=== PATIENT | female | born 1985 | race Caucasian/White ===

== ENCOUNTER 2016-10-10 11:00 | Observation (INO) | payer OTHER ==
[~2016-10-10] VITALS: Ht 175.3 cm; Wt 67.8 kg
[2016-10-10] MEDS ORDERED: HYDROmorphone 1 MG/ML (DILAUDID) SYRINGE IV ONE ×5 (11:40→16:50)
[2016-10-10] MEDS ORDERED: ONDANSETRON 2 MG/ML (Z0FRAN) 2 ML VIAL IV ONE ×2 (11:40→13:15)
[2016-10-10] MEDS: SODIUM CHLORIDE FLUSH 3 ML SYR IV PRN ×2 (11:46→19:30)
[2016-10-10 12:02] LABS: BASOPHILS % (AUTO) 0 % (0-2); EOSINOPHILS # (AUTO) 0.2 10^3uL; EOSINOPHILS % (AUTO) 2 % (0-4); LYMPHOCYTES # (AUTO) 2.3 X10^3; MEAN CORPUSCULAR HGB CONC 34.5 g/dL (31.0-37.0); MEAN CORPUSCULAR VOLUME 94 FL (80-100); MEAN PLATELET VOLUME 10.2 FL (6.0-9.5); MONOCYTES # (AUTO) 0.7 X10^3; MONOCYTES % (AUTO) 7 % (3-11); NEUTROPHILS # (AUTO) 6.3 X10^3; NEUTROPHILS % (AUTO) 66 % (51-67); PLATELET COUNT 236 10^3uL (150-450); WHITE BLOOD COUNT 9.48 10^3uL (4.0-11.0)
[2016-10-10 12:03] LABS: BILIRUBIN,URINE Negative (Negative); COLOR,URINE Yellow; GLUCOSE, URINE (UA) Negative (Negative); LEUKOCYTE ESTERASE ,URINE 1+ (Negative); UROBILINOGEN,URINE 0.2 mg/dL (0.2-1.0)
[2016-10-10 12:07] LABS: MEAN CORPUSCULAR HEMOGLOBIN 32.5 PG (26.0-34.0)
[2016-10-10 12:07] LABS: CLARITY,URINE Slightly Cloudy
[2016-10-10 12:09] LABS: URINE CENTRIFUGED VOLUME 12 mL
[2016-10-10 12:11] LABS: ALBUMIN 4.9 g/dL (3.4-5.0); CALCULATED IONIZED CALCIUM 3.7 mg/dL (3.8-4.6); TOTAL PROTEIN 8.4 g/dL (6.4-8.5)
[2016-10-10 12:24] LABS: HCG,QUALITATIVE URINE Negative
--- NOTE | 2016-10-10 14:22 | NUR ---
radiology states will be an hour before a gall bladder sono can be done
--- NOTE | 2016-10-10 14:25 | NUR ---
notified of pt pain 02/23
[2016-10-10] MEDS: SODIUM CHLORIDE FLUSH 10 ML SYR IV PRN ×4 (14:35→19:30)
[2016-10-10] MEDS ORDERED: METOCLOPRAMIDE 10 MG/2 ML (REGLAN) VIAL IV ONE (16:10)
--- NOTE | 2016-10-10 18:30 | NUR ---
patient gave her mom her medications to take home
--- NOTE | 2016-10-10 18:36 | NUR ---
Pt admitted to room 320 via w/c from ED accompanied by Inga Barrientos RN/Elvin Sup and parents. Alert/oriented x4. Abd pain rated 6/10. IV SL intact to RAC. See admission database for further assessment.
[2016-10-10 18:43] VITALS: BP 124/83
[2016-10-10] MEDS ORDERED: ACETAMINOPHEN 325 MG TAB (TYLENOL) PO PRN (19:05)
[2016-10-10] MEDS ORDERED: MAGNESIUM HYDROXIDE 80MG/ML (MILK OF MAGNESIA) 30 ML UDC PO PRN (19:05)
[2016-10-10] MEDS ORDERED: DOCUSATE SODIUM 100 MG (COLACE) CAP PO PRN (19:05)
[2016-10-10] MEDS ORDERED: POLYETHYLENE GLYCOL 17 GM (MIRALAX) PACKET PO PRN (19:05)
[2016-10-10] MEDS ORDERED: CALCIUM CARBONATE CHEWABLE 300 MG (TUMS) TABLET PO PRN (19:05)
[2016-10-10] MEDS ORDERED: MAG HYDROX/AL HYDROX/SIMETH 200-200-20/5 ML (MAG-AL PLUS) 30 ML UDC PO PRN (19:05)
[2016-10-10] MEDS ORDERED: PANTOPRAZOLE 40 MG (PROTONIX) TAB PO SCH (19:05)
[2016-10-10] MEDS: PROMETHAZINE HCL INJ 12.5 MG in SODIUM CHLORIDE 25 ML IV PRN (21:00)
[2016-10-10] MEDS ORDERED: SODIUM CHLORIDE 25 ML IV ONE (21:01)
[2016-10-10] MEDS ORDERED: PROMETHAZINE 25 MG/ML (PHENERGAN) 1 ML VIAL ONE (21:01)
[2016-10-10] MEDS ORDERED: PANTOPRAZOLE IV 40 MG in SODIUM CHLORIDE FLUSH 10 ML IV ONE (22:00)
[2016-10-10] MEDS: PANTOPRAZOLE IV 40 MG in SODIUM CHLORIDE 100 ML IV SCH (22:45)
[2016-10-10] MEDS ORDERED: SODIUM CHLORIDE 100 ML ONE (23:24)
[2016-10-10] MEDS ORDERED: PANTOPRAZOLE 40 MG (PROTONIX) VIAL IV ONE (23:24)
[2016-10-10 23:47] VITALS: BP 118/74
[2016-10-11] MEDS: PANTOPRAZOLE IV 40 MG in SODIUM CHLORIDE 100 ML IV SCH (03:31)
[2016-10-11] MEDS ORDERED: PANTOPRAZOLE 40 MG (PROTONIX) VIAL IV ONE (04:24)
[2016-10-11] MEDS ORDERED: SODIUM CHLORIDE 100 ML ONE (04:25)
--- NOTE | 2016-10-11 05:30 | NUR ---
1914-Pt reports IV is hurting, this RN noted that IV was hard to flush and positional. Restarted 20g IV in RFA with minimal difficulty. Pt reports that she is nauseous and in pain rates 7/10 at this time. 1929-Gave Phenergan 12.5mg IV over 15 min for nausea, and Tramadol 50mg PO for discomfort. 2199-Started Protonix per DR order. 529-Pt has been resting most of shift, currently in bed asleep. Call light in reach, will continue to monitor.
[2016-10-11 06:07] LABS: BASOPHILS % (AUTO) 1 % (0-2); EOSINOPHILS # (AUTO) 0.3 10^3uL; EOSINOPHILS % (AUTO) 5 % (0-4); LYMPHOCYTES # (AUTO) 2.2 X10^3; MEAN CORPUSCULAR HGB CONC 34.5 g/dL (31.0-37.0); MEAN CORPUSCULAR VOLUME 95 FL (80-100); MEAN PLATELET VOLUME 10.1 FL (6.0-9.5); MONOCYTES # (AUTO) 0.4 X10^3; MONOCYTES % (AUTO) 7 % (3-11); NEUTROPHILS # (AUTO) 2.8 X10^3; NEUTROPHILS % (AUTO) 48 % (51-67); PLATELET COUNT 196 10^3uL (150-450); WHITE BLOOD COUNT 5.75 10^3uL (4.0-11.0)
[2016-10-11 06:12] LABS: MEAN CORPUSCULAR HEMOGLOBIN 32.8 PG (26.0-34.0)
[2016-10-11 06:36] LABS: ALBUMIN 3.5 g/dL (3.4-5.0); ANION GAP 10.9 MEQ/L (3-15); PHOSPHORUS 4.2 mg/dL (2.4-4.9)
[2016-10-11 07:41] VITALS: BP 93/59
--- NOTE | 2016-10-11 08:30 | NUR ---
NUTRITION ASSESSMENT Level 1 Patient: Aissatou Stahl Age/Sex: 31/F Date Screened: 10-11-16 Weight: 149.1#/67.8 kg Height: 69 inches Primary Diagnosis: abdominal pain Diet Order: CL Relevant labs: stool occult blood (-), glucose 77 Food allergies: N Nutrition Assessment Criteria Age over 80: N Body Mass Index (BMI) under 19: N Admission Screening Indicates Risk? 3 points Moderate/High Risk Diagnosis: 3 points TPN or PPN: N NPO or clear liquid diet: Yes Serum Glucose <70 or >180: N Hgb A1c >6.7: N/A Total: 6 points Risk Screen: __ Patient at low nutritional risk based on available data; reevaluate in 5-7 days __ Patient at moderate nutritional risk based on available data; reevaluate in 3-5 days _X_ Patient at high nutritional risk; complete Nutrition Assessment within 48 hours of admission.
[2016-10-11] MEDS: ONDANSETRON 2 MG/ML (Z0FRAN) 2 ML VIAL IV PRN (08:57)
[2016-10-11] MEDS: DULoxetine 30 MG (CYMBALTA) CAPSULE PO SCH (09:12)
--- NOTE | 2016-10-11 09:43 | NUR ---
MED REC COMPLETED-current med list obtained from Ext Med History application, retail pharmacy ([facility]) and patient interview. Conducted by Shaina Al, PharmD Candidate 2017
[2016-10-11] MEDS: NICOTINE 21 MG (NICODERM) PATCH TD SCH (09:45)
[2016-10-11] MEDS: HYDROmorphone 1 MG/ML (DILAUDID) SYRINGE IV PRN ×5 (10:32→22:40)
--- NOTE | 2016-10-11 10:35 | NUR ---
Complaining of back pain. Med given.
--- NOTE | 2016-10-11 12:05 | NUR ---
Requesting pain and nausea med. Tylenol refused. Informed too early for other pain meds and nausea med. Cool washcloth offered for nausea but refused. Calm and watching TV. Raman sips of fluids.
--- NOTE | 2016-10-11 12:05 | NUR ---
Requesting solid food. Informed still on clear liquid diet due to scopes tomorrow.
--- NOTE | 2016-10-11 12:49 | NUR ---
Resting in bed talking on phone. No complaints.
--- NOTE | 2016-10-11 13:04 | NUR ---
NUTRITION ASSESSMENT Level II Patient: Aissatou Stahl Age/Sex: 31/F Date Assessed: 10-11-16 ASSESSMENT Pertinent History: Patient admitted with abdominal pain and screened at high nutritional risk secondary to diagnosis with stated 10# weight loss in the last 2 weeks and length of time abdominal pain/n/v began (10-05-16). PMHx includes PUD, IBS, ADHD, insomnia, anxiety/depression and panic disorder. Meds/Nutrition: Protonix, NS, Miralax Weight: 149.1#/67.8 kg Height: 69 inches Body Mass Index (BMI): 22.1 [place] Body Weight : 145#/65.9 kg % IBW: 102% GASTROINTESTINAL Appetite: poor Diet Order: CL (NPO after midnight) Unintentional loss of >10 lbs. in 3 months: Yes (unconfirmed) Difficult to chew/swallow: N Diabetes: N Relevant Labs: stool occult blood (-), glucose 77 Calculations for Nutritional Assessment Estimated calorie needs: 25-28 kcals/kg = 1,675-1,875 kcals Estimated protein needs: 0.8-1.0 g/kg = 53-67 g./day DIAGNOSIS 1. Nutrition Diagnosis: Acute inadequate intake related to acute illness as evidenced by n/v/abdominal pain x6 days. NUTRITIONAL INTERVENTION Goal: Patient will receive adequate nutrition to meet her needs. Plan: Noted plan for upper and lower endoscopy tomorrow. Will follow with physician and surgeon re: etiology of abdominal pain, with specific nutrition interventions to be determined. MONITORING & EVALUATION __ Monitor patients menu selections __ Monitor patients food intake per nursing notes _X_ Monitor NPO/clear liquid days __ Monitor lab values __ Monitor I&O __ Other
--- NOTE | 2016-10-11 13:37 | NUR ---
Reports back and abd pain. Pain med given. States pablo sips water well. Visitor at bedside.
--- NOTE | 2016-10-11 14:51 | NUR ---
States pain is better 5:10. No other complaints.
[2016-10-11 15:37] VITALS: BP 118/73
--- NOTE | 2016-10-11 16:31 | NUR ---
Amb to vending machines with family. Apple juice given to patient.Gait steady. Raman well. Reports back and abd pain. med given.
--- NOTE | 2016-10-11 17:38 | NUR ---
dismissed to home per amb accompanied by Susan PAUL and friend.Gait steady. Alert and oriented x4. Skin w/p/d. Resp regular and unlabored. Continues to have mild tingling right fingertips upon dismissal. Addendum: 10/11/16 at 1927 by Cat Tan RN Note charted on wrong patient.
[2016-10-11] MEDS: SODIUM CHLORIDE FLUSH 3 ML SYR IV PRN (18:29)
[2016-10-11] MEDS ORDERED: BISACODYL 5 MG (DULCOLAX) TABLET PO ONE (19:00)
--- NOTE | 2016-10-11 19:15 | NUR ---
Pt seen and assessed. Updated on plan of care for the night; miralax prep to start at 2000 and NPO at midnight. Pt rates abd pain at 7/10 currently. Denies needs at this time.
--- NOTE | 2016-10-11 19:57 | NUR ---
Pt requests to start bowel prep. "I just want to get it over with." First set of gatorade/miralax prep given to pt.
[2016-10-11] MEDS ORDERED: POLYETHYLENE GLYCOL PO ONE (20:00)
--- NOTE | 2016-10-11 20:30 | NUR ---
Pt finishes miralax prep. C/o increased pain. No PRNs available to patient at this time. Dr Ford notified; new order received.
[2016-10-11] MEDS: SODIUM CHLORIDE FLUSH 10 ML SYR IV PRN ×3 (20:31→23:41)
[2016-10-12] VITALS (10 sets, daily range): BP systolic 109–129; BP diastolic 69–78
[2016-10-12] MEDS: HYDROmorphone 1 MG/ML (DILAUDID) SYRINGE IV PRN ×6 (01:38→20:26)
[2016-10-12] MEDS: ONDANSETRON 2 MG/ML (Z0FRAN) 2 ML VIAL IV PRN ×2 (01:52→11:33)
[2016-10-12] MEDS: PROMETHAZINE HCL INJ 12.5 MG in SODIUM CHLORIDE 25 ML IV PRN (05:36)
--- NOTE | 2016-10-12 05:39 | NUR ---
Pt feels concerned that she is not urinating much. Pt also states that she is "bleeding from the place where you pee." Noted that pt has had 1200 ml urine out from 11p-6a. Urine has been clear and yellow during entire shift. Encouraged pt to not strain when attempting to urinate. Pt voices understanding. Will continue to monitor.
--- NOTE | 2016-10-12 05:52 | NUR ---
Pt bladder scanned. Approximately 215 ml in bladder. Pt requests that doctor be notified. States "I don't feel good and I just want some relief." Dr Ford notified via text message
--- NOTE | 2016-10-12 06:17 | NUR ---
Pt currently resting quietly in bed with eyes closed.
--- NOTE | 2016-10-12 06:55 | NUR ---
Pt continues sleeping. Dr Ford gives order may straight cath if greater than 200ml in bladder.
--- NOTE | 2016-10-12 07:30 | NUR ---
Patient awake in bed upon shift assessment. Reports headache and generalized abdominal pain rated 9/10 on pain scale. Also reports rectal and "urethral" bleeding. States "I can't pee, all I do is drip blood". Informs nurse she has not had menstrual period in 7 years due to IUD. Small amount of blood noted on toilet paper in toilet. Bladder scan performed at this time and 245ml urine found in bladder. Patient requests straight cath for relief of symptoms. Updated on plan of care for shift including pain management, allowing nurse to assess blood, and tentative EGD/colonoscopy time. Call light in reach.
--- NOTE | 2016-10-12 07:50 | NUR ---
Straight cath performed by sterile technique at this time. 300mL of clear yellow urine out with insertion. Patient tolerated well. Will continue to monitor.
[2016-10-12] MEDS: NICOTINE 21 MG (NICODERM) PATCH TD SCH (08:42)
[2016-10-12] MEDS: ONDANSETRON 4 MG (ZOFRAN) ORAL DISSOLVE TAB PO PRN ×2 (08:42→15:17)
[2016-10-12] MEDS: DULoxetine 30 MG (CYMBALTA) CAPSULE PO SCH (08:42)
[2016-10-12] MEDS: PANTOPRAZOLE 40 MG (PROTONIX) TAB PO SCH (08:44)
[2016-10-12] MEDS: NICOTINE PATCH REMOVAL TOP SCH (08:46)
--- NOTE | 2016-10-12 12:30 | NUR ---
Dr. Ford in room to see patient. Patient continues to c/o urinary retention. Bladder scan performed and 171ml found in bladder. Dr. Ford orders to place frances catheter. 16 albanian catheter inserted using sterile technique. UA obtained and taken to lab. patient tolerates well.
[2016-10-12] MEDS ORDERED: PROPOFOL 20 ML IV ONE (12:48)
[2016-10-12] MEDS ORDERED: MIDAZOLAM 2 MG/2 ML (VERSED) VIAL ONE (12:48)
[2016-10-12] MEDS ORDERED: ALFENTANIL 500 MCG/ML (ALFENTA) 5 ML AMP IV ONE ×2 (12:49)
[2016-10-12] MEDS ORDERED: LACTATED RINGERS 1,000 ML IV ONE (13:01)
[2016-10-12] MEDS ORDERED: SIMETHICONE 40 MG/0.6 ML (MYLICON DROPS) ORAL SYRINGE ONE (13:02)
[2016-10-12] MEDS ORDERED: LIDOCAINE 4% TOPICAL 4.5 ML SYR ONE (13:02)
[2016-10-12] MEDS ORDERED: LIDOCAINE 2% BOLUS 100 MG/5 ML (XYLOCAINE) SYRINGE ONE (13:02)
--- NOTE | 2016-10-12 13:13 | NUR ---
Patient to OR via cart.
[2016-10-12 13:46] LABS: BILIRUBIN,URINE Negative (Negative); CLARITY,URINE Clear; COLOR,URINE Yellow; GLUCOSE, URINE (UA) Negative (Negative); LEUKOCYTE ESTERASE ,URINE Negative (Negative); UROBILINOGEN,URINE 0.2 mg/dL (0.2-1.0)
[2016-10-12 13:47] LABS: URINE CENTRIFUGED VOLUME 12 mL
--- NOTE | 2016-10-12 14:45 | NUR ---
Patient returns to room from OR. Reports headache and abdominal pain persist. Vital signs WNL. PRN Dilaudid provided. Will continue to monitor.
[2016-10-12] MEDS: SODIUM CHLORIDE FLUSH 10 ML SYR IV PRN ×2 (15:06→20:26)
--- NOTE | 2016-10-12 16:30 | NUR ---
Patient taken to exam room 9 in ED for pelvic exam per order. Adrianna Lott accompanies patient and remains present during exam.
--- NOTE | 2016-10-12 18:34 | NUR ---
Patient returns to room from CT. Continues to report mild nausea, headache, and abdominal pain. Diet advanced to clear liquid VORB per Dr. Dang. Patient does not want anything at this time. Call light in reach.
--- NOTE | 2016-10-12 19:05 | NUR ---
Chance cath removed per order. 8ml fluid aspirated; balloon intact. Pt tolerates well. Requests a sandwich.
--- NOTE | 2016-10-13 02:55 | NUR ---
Pt states she has been having some nightmares. Requests to have nicotine patch removed. Patch removed; placed in sharps container. Pt denies further needs.
[2016-10-13] MEDS: PANTOPRAZOLE 40 MG (PROTONIX) TAB PO SCH (06:18)
--- NOTE | 2016-10-13 06:20 | NUR ---
Pt rests in long intervals. Minimal c/o pain. Has headache at various points throughout the night; relieved with PRN pain medications. SL intact. Resp even and non labored on RA.
[2016-10-13 08:28] VITALS: BP 101/58
[2016-10-13] MEDS: NICOTINE 21 MG (NICODERM) PATCH TD SCH (08:59)
[2016-10-13] MEDS: DULoxetine 30 MG (CYMBALTA) CAPSULE PO SCH (08:59)
[2016-10-13] MEDS: NICOTINE PATCH REMOVAL TOP SCH (09:01)
--- NOTE | 2016-10-13 10:40 | NUR ---
SOLIS cardoso'cd from right forearm. Verbalizes understanding of dismissal instructions. Dressed and ready for dismissal.
--- NOTE | 2016-10-13 11:20 | NUR ---
Pt left without calling nursing to accompany out the door. Alert and oriented. continued to have some DEL ANGEL discomfort. Resp. even and unlabored. Only mild abd soreness - no acute pain. No complaint of nausea, stated appetite only fair. Steady on ambulation. Skin w/d.
== END 2016-10-13 11:20 | disposition home or self-care (01) ==
LOC: EDSEX 11:06 → ED 11:06 → MED/SURG 17:57
PROVIDERS: ADMIT Internal Medicine; ATTEND Internal Medicine
PROC: 0DB98ZX Excision of Duodenum, Via Natural or Artificial Opening Endoscopic, Diagnostic (ICD-10-PCS; principal; 2016-10-12)
PROC: 0DB68ZX Excision of Stomach, Via Natural or Artificial Opening Endoscopic, Diagnostic (ICD-10-PCS; 2016-10-12)
PROC: 0DB38ZX Excision of Lower Esophagus, Via Natural or Artificial Opening Endoscopic, Diagnostic (ICD-10-PCS; 2016-10-12)
PROC: 0DBE8ZX Excision of Large Intestine, Via Natural or Artificial Opening Endoscopic, Diagnostic (ICD-10-PCS; 2016-10-12)
DX: K92.1 Melena (principal); A08.4 Viral intestinal infection, unspecified; K92.0 Hematemesis; N93.9 Abnormal uterine and vaginal bleeding, unspecified; E86.0 Dehydration; K29.30 Chronic superficial gastritis without bleeding; K29.80 Duodenitis without bleeding; R33.9 Retention of urine, unspecified; F41.9 Anxiety disorder, unspecified; F17.200 Nicotine dependence, unspecified, uncomplicated; N83.201 Unspecified ovarian cyst, right side; Z87.11 Personal history of peptic ulcer disease
CPT/HCPCS: 36415; 43239; 45380; 74022; 74178; 76705; 80053; 80069; 81003; 81015; 81025; 82274; 83520; 83690; 84443; 85025; 85652; 86140; 86255; 87077; 87088; 94760; 96361; 96365; 96366; 96367; 96375; 96376; 99218; 99285; C9113; J1170; J2250; J2405; J2550; J2765; J7030; J7050; Q9967; 96374

== ENCOUNTER 2017-01-16 12:24 | Emergency (ER) | payer OTHER ==
[~2017-01-16] VITALS: Ht 175.3 cm; Wt 69.8 kg
[~2017-01-16 12:24] MED LIST: DIAZ10TA3 PO; DULO30CA46 PO; HYDR-3775 PO; IBP800T PO; LAMO100T PO; METH36TA11 PO; ONDAN4ODT PO; PANT40TA3 PO; ZLP10T PO
[2017-01-16] MEDS ORDERED: KETOROLAC 30 MG/ML (TORADOL) 1 ML VIAL IV ONE (12:35)
[2017-01-16] MEDS ORDERED: SODIUM CHLORIDE FLUSH 10 ML SYR IV PRN (12:35)
[2017-01-16] MEDS ORDERED: SODIUM CHLORIDE FLUSH 3 ML SYR IV ONE (12:35)
[2017-01-16 12:48] LABS: BASOPHILS % (AUTO) 0 % (0-2); EOSINOPHILS # (AUTO) 0.3 10^3uL; EOSINOPHILS % (AUTO) 4 % (0-4); LYMPHOCYTES # (AUTO) 1.7 X10^3; MEAN CORPUSCULAR HGB CONC 33.8 g/dL (31.0-37.0); MEAN CORPUSCULAR VOLUME 96 FL (80-100); MEAN PLATELET VOLUME 9.3 FL (6.0-9.5); MONOCYTES # (AUTO) 0.7 X10^3; MONOCYTES % (AUTO) 8 % (3-11); NEUTROPHILS # (AUTO) 5.7 X10^3; NEUTROPHILS % (AUTO) 68 % (51-67); PLATELET COUNT 225 10^3uL (150-450); WHITE BLOOD COUNT 8.46 10^3uL (4.0-11.0)
[2017-01-16 12:51] LABS: BILIRUBIN,URINE Negative (Negative); CLARITY,URINE Cloudy; COLOR,URINE Yellow; GLUCOSE, URINE (UA) Negative (Negative); LEUKOCYTE ESTERASE ,URINE 3+ (Negative); PH,URINE 5.5 (5.0 - 8.0); UROBILINOGEN,URINE 0.2 mg/dL (0.2-1.0)
[2017-01-16 12:52] LABS: MEAN CORPUSCULAR HEMOGLOBIN 32.5 PG (26.0-34.0)
[2017-01-16 12:56] LABS: URINE CENTRIFUGED VOLUME 12 mL
[2017-01-16 13:01] LABS: AMPHETAMINE SCREEN, URINE Negative (Negative); CANNABINOID SCREEN, URINE Negative (Negative); METHAMPHETAMINE SCREEN URINE S NEGATIVE (NEGATIVE); OPIATE SCREEN URINE Positive (Negative); PROPOXYPHENE STAT NEGATIVE (NEGATIVE)
[2017-01-16 13:06] LABS: ALBUMIN 4.6 g/dL (3.4-5.0); ANION GAP 17.6 MEQ/L (3-15); CALCULATED IONIZED CALCIUM 3.9 mg/dL (3.8-4.6); TOTAL PROTEIN 7.9 g/dL (6.4-8.5)
[2017-01-16] MEDS ORDERED: PHEN-639 PO (13:17)
[2017-01-16] MEDS ORDERED: CPR500T PO (13:17)
[2017-01-16 13:41] VITALS: BP 117/73
--- NOTE | 2017-01-16 13:55 | Diagnostic Imaging Report ---
EXAM: ACUTE ABD SERIES INDICATION: Abdominal pain. COMPARISON: CT abdomen and pelvis without and with IV contrast 10/12/2016. FINDINGS: No free intraperitoneal air. Nonspecific bowel gas pattern. IUD. No acute osseous findings. Normal heart size and pulmonary vascularity. No focal pulmonary opacity, pleural effusion or pneumothorax. IMPRESSION: No acute radiographic findings in the abdomen. Dictated by: Dictated on workstation # [id number]
== END 2017-01-16 13:46 | disposition home or self-care (01) ==
LOC: EDUNIT# 12:24 → ED 12:26
DX: R10.2 Pelvic and perineal pain (principal)
CPT/HCPCS: 36415; 74022; 80053; 80307; 81003; 81015; 82150; 83690; 84703; 85025; 86140; 87088; 96361; 96374; 99284; J1885; J7030; 99283